=== PATIENT | male | born 1970 | race Caucasian/White ===

== ENCOUNTER 2020-09-29 12:03 | Day surgery (SDC) | payer BC ==
[~2020-09-29] VITALS: Ht 180.3 cm; Wt 81.8 kg
[~2020-09-29 12:03] MED LIST: DIAZ5TAB4 PO; HYDR-3248 PO
[2020-09-29] MEDS ORDERED: PARO10TA56 PO (12:40)
[2020-09-29] MEDS ORDERED: ASPI-963 PO (12:40)
[2020-09-29] MEDS ORDERED: HYDR-3248 PO (12:42)
[2020-09-29] MEDS ORDERED: CHLORHEXIDINE 15 ML UDC ONE (12:49)
[2020-09-29] MEDS ORDERED: CHLORHEXIDINE 15 ML UDC PO ONE (13:00)
[2020-09-29] MEDS ORDERED: LACTATED RINGERS 1,000 ML IV SCH (13:00)
[2020-09-29 13:03] VITALS: BP 113/77
[2020-09-29] MEDS ORDERED: MIDAZOLAM 1 MG/ML, 2ML ONE (13:30)
[2020-09-29] MEDS ORDERED: FENTANYL PF 100 MCG/2ML ONE ×2 (13:31→15:36)
[2020-09-29] MEDS ORDERED: OMNIPAQUE 350 MG/ML, 50 ML BOTTLE ONE (13:59)
[2020-09-29] MEDS ORDERED: PHENYLEPHRINE 10 MG/ML ONE (14:11)
[2020-09-29] MEDS ORDERED: HYDROmorphone 1 MG/ML, 1ML INJ ONE (14:17)
[2020-09-29] MEDS ORDERED: HALOPERIDOL 5 MG/ML IV PRN (14:30)
[2020-09-29] MEDS ORDERED: METOPROLOL 1 MG/ML, 5ML IV PRN (14:30)
[2020-09-29] MEDS ORDERED: ONDANSETRON 2MG/ML, 2ML IVPush PRN (14:30)
[2020-09-29] MEDS ORDERED: MEPERIDINE/PF 25MG/0.5ML IVPush PRN (14:30)
[2020-09-29] MEDS ORDERED: METOCLOPRAMIDE 5 MG/ML, 2ML IVPush PRN (14:30)
[2020-09-29] MEDS ORDERED: HYDROmorphone 1 MG/ML, 1ML INJ IVPush PRN (14:30)
[2020-09-29] MEDS ORDERED: LABETALOL 5MG/ML, 20ML IV PRN (14:30)
[2020-09-29] MEDS ORDERED: hydrALAzine 20 MG/ML, 1ML IV PRN (14:30)
[2020-09-29] MEDS ORDERED: OXYcodone 5 MG/5 ML ORAL.SOL UDC PO PRN (14:30)
[2020-09-29] MEDS ORDERED: EPHEDRINE 50 MG/ML, 1ML IVPush PRN (14:30)
[2020-09-29] MEDS ORDERED: DIPHENHYDRAMINE 50 MG/ML, 1ML IVPush PRN (14:30)
[2020-09-29] MEDS ORDERED: PROMETHAZINE 25 MG/ML, 1ML IVPush PRN (14:30)
[2020-09-29] MEDS ORDERED: ACETAMINOPHEN 325 MG TABLET PO PRN (14:30)
[2020-09-29] MEDS ORDERED: KETOROLAC 30 MG/1 ML IVPush PRN (14:30)
[2020-09-29] MEDS ORDERED: FENTANYL PF 100 MCG/2ML IV PRN (14:30)
[2020-09-29] MEDS ORDERED: OMNIPAQUE 350 MG/ML, 50 ML BOTTLE IV ONE (14:43)
[2020-09-29] MEDS ORDERED: PROPOFOL 10 MG/ML, 20ML ONE (15:14)
[2020-09-29] MEDS ORDERED: DEXAMETHASONE 4 MG/ML, 1ML ONE (15:14)
[2020-09-29] MEDS ORDERED: ONDANSETRON 2MG/ML, 2ML ONE (15:14)
[2020-09-29] MEDS ORDERED: CEFAZOLIN 1,000 MG ONE (15:14)
[2020-09-29] MEDS ORDERED: KETOROLAC 30 MG/1 ML ONE (15:21)
[2020-09-29] MEDS ORDERED: OXYcodone 5 MG/5 ML ORAL.SOL UDC ONE (15:36)
== END 2020-09-29 17:00 | disposition home or self-care (01) ==
LOC: OUT 12:03
PROVIDERS: ATTEND Urology
DX: N20.1 Calculus of ureter (principal); N40.0 Benign prostatic hyperplasia without lower urinary tract symptoms; Z20.822 Contact with and (suspected) exposure to COVID-19; Z98.890 Other specified postprocedural states
CPT/HCPCS: 52353; 74420; 82360; 87635; 88300; J0690; J1100; J1170; J1885; J2250; J2370; J2405; J2704; J3010; J7120; Q9967